=== PATIENT | male | born 1990 | race Caucasian/White ===

== ENCOUNTER 2021-08-15 02:11 | Emergency (ER) | payer MEDICAID ==
[~2021-08-15] VITALS: Ht 180.3 cm; Wt 101.5 kg
[2021-08-15 02:55] VITALS: BP 137/93
== END 2021-08-15 05:08 | disposition left against medical advice (07) ==
LOC: ER 02:11
DX: Z53.21 Procedure and treatment not carried out due to patient leaving prior to being seen by health care provider (principal)